=== PATIENT | female | born 2000 | race African-American/Black ===

== ENCOUNTER 2021-08-21 10:14 | Inpatient (IN) | payer MEDICAID, OTHER ==
[2021-08-21] MEDS ORDERED: Methylergonovine 0.2 MG/ML VIAL IM PRN (12:12)
[2021-08-21] MEDS ORDERED: Ondansetron PF 4 MG/2 ML Vial IVP PRN ×2 (12:12→21:25)
[2021-08-21] MEDS ORDERED: Carboprost 250 MCG/ML AMP IM PRN (12:12)
[2021-08-21] MEDS ORDERED: Promethazine HCl 25 MG/ML VIAL IM PRN ×2 (12:12→21:25)
[2021-08-21] MEDS ORDERED: Misoprostol 200 MCG TAB PR PRN (12:12)
[2021-08-21] MEDS ORDERED: HYDROcodone/Acetaminophen 5/325 mg Tablet PO PRN (12:12)
[2021-08-21] MEDS ORDERED: hydrALAZINE 20 MG/ML VIAL SLOW IVP PRN (12:12)
[2021-08-21] MEDS ORDERED: Lidocaine 1% (PF) 30 ML VIAL SC PRN (12:12)
[2021-08-21] MEDS ORDERED: Diphenoxylate HCl/Atropine Tablet PO PRN (12:12)
[2021-08-21] MEDS ORDERED: NS w/ Oxytocin 30 units 500 ML IV SCH (12:15)
[2021-08-21] MEDS ORDERED: Lactated Ringer's 1,000 ML IV SCH (12:15)
[2021-08-21] MEDS ORDERED: Misoprostol 200 MCG TAB ONE (13:04)
[2021-08-21 13:33] LABS: Hemoglobin 10.6 g/dL (12.0-15.5); Mean Corpuscular HGB CONC 35.3 g/dL (32.0-36.0); Mean Corpuscular Volume 87.7 fl (81.6-98.3); Mean Platelet Volume 11.1 fl (7.4-10.4); Platelet Count 210 10x3/uL (150-450); RBC Distribution Width 12.1 % (11.5-14.5); Red Blood Cell (RBC) Count 3.42 10x6/uL (3.90-5.03); White Blood Cell (WBC) Count 7.4 10x3/uL (3.5-10.5)
[2021-08-21] MEDS: Misoprostol 100 MCG TAB VAG SCH ×3 (13:58→21:47)
[2021-08-21 14:10] LABS: SARS-CoV-2 NAA Rapid Test Not Detected (NotDetected)
[2021-08-21] MEDS: Butorphanol Tartrate 1 MG/ML VIAL SLOW IVP PRN ×2 (15:34→18:16)
[2021-08-21 17:44] VITALS: BMI 22.4
[2021-08-21] MEDS ORDERED: Fentanyl 2 mcg/Bup 0.1% Cadd 100 ML ONE (19:30)
[2021-08-21] MEDS: Acetaminophen 500 MG TAB PO PRN (20:09)
[2021-08-21] MEDS ORDERED: Acetaminophen 325 MG TAB PO PRN (21:25)
[2021-08-21] MEDS ORDERED: Lactated Ringer's 500 ML IV PRN (21:25)
[2021-08-21] MEDS ORDERED: Moisturizing Cream (Eucerin) 113 GM JAR TOP PRN (21:25)
[2021-08-21] MEDS ORDERED: Naloxone HCl 0.4 mg/ml Vial IVP PRN ×2 (21:25)
[2021-08-21] MEDS ORDERED: diphenhydrAMINE 50 MG/ML VIAL IVP PRN (21:25)
[2021-08-21] MEDS ORDERED: ePHEDrine Sulfate 50 MG/10 ML VIAL SLOW IVP PRN (21:25)
[2021-08-21] MEDS ORDERED: Communication Order-Pharmacy FS SCH (21:30)
[2021-08-22] MEDS: Ibuprofen 800 MG TAB PO PRN ×2 (01:02→08:38)
[2021-08-22] MEDS: Misoprostol 100 MCG TAB VAG SCH ×2 (01:02→04:46)
[2021-08-22] MEDS: Acetaminophen 500 MG TAB PO PRN (02:42)
[2021-08-22] MEDS: Fentanyl 2 mcg/Bupivacaine 0.1% Cassette 100 ML EPIDURAL SCH ×2 (04:17→12:40)
[2021-08-22] MEDS ORDERED: Misoprostol 100 MCG TAB ONE (04:25)
[2021-08-22] MEDS ORDERED: Ibuprofen 800 MG TAB PO PRN (08:30)
[2021-08-22 08:38] VITALS: TEMP 102.5
[2021-08-22] MEDS ORDERED: Misoprostol 200 MCG TAB ONE (15:09)
== END 2021-08-23 08:30 | disposition home or self-care (01) | DRG 807 ==
LOC: CSHLD/OP 10:14 → CSHERS 10:14 → UNDOADMIN 10:26 → EDSTATUS 10:26 → CSHLD 10:26
PROVIDERS: ADMIT Family Medicine; ATTEND Family Medicine
PROC: 10E0XZZ Delivery of Products of Conception, External Approach (ICD-10-PCS; principal; 2021-08-22)
PROC: 3E0P7VZ Introduction of Hormone into Female Reproductive, Via Natural or Artificial Opening (ICD-10-PCS; 2021-08-22)
DX: O36.4XX0 Maternal care for intrauterine death, not applicable or unspecified (principal); Z37.1 Single stillbirth; Z3A.20 20 weeks gestation of pregnancy; O42.02 Full-term premature rupture of membranes, onset of labor within 24 hours of rupture; Z20.822 Contact with and (suspected) exposure to COVID-19; D18.1 Lymphangioma, any site; O99.892 Other specified diseases and conditions complicating childbirth
CPT/HCPCS: 36415; 51702; 85027; 86850; 86900; 86901; J0595; J2405; U0002